=== PATIENT | male | born 1970 | race Caucasian/White ===

== ENCOUNTER 2018-10-24 18:06 | Emergency (ER) | payer OTHER ==
[~2018-10-24] VITALS: Ht 177.8 cm; Wt 72.1 kg
[~2018-10-24 18:06] MED LIST: NOHOMEMEDICATIONS; PROTONIX40 M2 PO; XANAX 0.5 MG0.5 M1; ZPAK PO
[2018-10-24 18:30] LABS: ABSOLUTE BASOPHILS 0.1 thou/uL (0.0-0.2); ABSOLUTE EOSINOPHILS 0.3 thou/uL (0.0-0.7); ABSOLUTE LYMPHOCYTES 2.6 thou/uL (0.8-5.3); ABSOLUTE MONOCYTES 0.8 thou/uL (0.0-1.2); ABSOLUTE NEUTROPHILS 5.3 thou/uL (1.6-8.1); BASOPHILS 1.1 %; EOSINOPHILS 3.8 %; HEMATOCRIT 45.3 % (42.0-52.0); HEMOGLOBIN 15.3 gm/dL (14.0-18.0); LYMPHOCYTES 28.1 %; MCH 30.1 pg (26.0-34.0); MCHC 33.8 g/dL (28.0-37.0); MCV 89.2 fL (80.0-100.0); MONOCYTES 8.5 %; MPV 8.3 fl. (7.2-11.1); NUCLEATED RBCS 0 /100WBC; PLATELET COUNT* 238 thou/uL (150-400); POLYS 58.5 %; RBC 5.07 mil/uL (4.50-6.00); RDW-CV 13.5 % (10.5-14.5); WBC 9.1 thou/uL (4.0-11.0)
[2018-10-24 18:37] LABS: ANION GAP 10 mmol/L (7-16); BUN 23 mg/dL (7-18); CHLORIDE 103 mmol/L (98-107); CO2 27 mmol/L (21-32); CREATININE 1.5 mg/dL (0.6-1.3); GLUCOSE 104 mg/dL (70-99); POTASSIUM 3.9 mmol/L (3.5-5.1); SODIUM 140 mmol/L (136-145)
[2018-10-24 18:44] LABS: ALBUMIN 3.7 g/dL (3.4-5.0); ALKALINE PHOSPHATASE 52 U/L (46-116); SGOT 24 U/L (15-37); SGPT 25 U/L (30-65); TOTAL BILIRUBIN 0.6 mg/dL (<0.1-1.0); TOTAL PROTEIN 7.4 g/dL (6.4-8.2); TROPONIN-I LEVEL <0.06 ng/mL (<0.06)
[2018-10-24] MEDS ORDERED: AUGMENTIN 875-1 EACH PO (19:12)
[2018-10-24] MEDS ORDERED: ANTIVERT25 MG PO (19:12)
[2018-10-24 19:35] VITALS: BP 114/78
--- NOTE | 2018-10-25 11:35 | EKG ---
[place] [address] ELECTROCARDIOGRAM REPORT Name: AVEL FOOTE Room: [facility]#: [id number] Admission: 10/24/18 Attend Phys: Discharge: 10/24/18 Date of : 68 Report #: [id number] THIS REPORT FOR: //name// [facility] ED Test Date: 2018-10-24 Test Time: 18:11:41 Pat Name: AVEL FOOTE Department: Room: Gender: M Branch Manager Trainee: : 1970 Requested By: Shauna Rodriguez Order Number: [id number] MD: Garret Carroll Measurements Intervals [place] Rate: 90 P: 74 [place]: 126 QRS: 63 QRSD: 100 T: 44 QT: 330 QTc: 404 Interpretive Statements Sinus rhythm Probable left atrial enlargement ST elev, probable normal early repol pattern Compared to ECG 08/14/2009 23:50:48 ST (T wave) deviation now present Left ventricular hypertrophy no longer present Electronically Signed On 10-25-2018 11:35:04 CDT by Garret Carroll [email or web address] <ELECTRONICALLY SIGNED> By: Garret Carroll MD, FACC 10/25/18 1135 181 181 Garret Carroll MD, [facility] /EPI
== END 2018-10-24 19:51 | disposition home or self-care (01) ==
LOC: M.ERS 18:06
PROVIDERS: Nurse Practitioner Family
DX: R42 Dizziness and giddiness (principal); J32.9 Chronic sinusitis, unspecified

== ENCOUNTER 2019-07-31 16:14 | Emergency (ER) | payer OTHER ==
[~2019-07-31] VITALS: Ht 182.9 cm; Wt 75.8 kg
[~2019-07-31 16:14] MED LIST changes: +ANTIVERT25 MG PO; +AUGMENTIN 875-1 EACH PO
[2019-07-31 17:02] LABS: ABSOLUTE BASOPHILS 0.1 thou/uL (0.0-0.2); ABSOLUTE EOSINOPHILS 0.2 thou/uL (0.0-0.7); ABSOLUTE LYMPHOCYTES 2.7 thou/uL (0.8-5.3); ABSOLUTE MONOCYTES 0.7 thou/uL (0.0-1.2); ABSOLUTE NEUTROPHILS 7.1 thou/uL (1.6-8.1); BASOPHILS 0.8 %; EOSINOPHILS 1.8 %; HEMATOCRIT 37.6 % (42.0-52.0); LYMPHOCYTES 25.1 %; MCH 31.7 pg (26.0-34.0); MCHC 34.5 g/dL (28.0-37.0); MCV 91.9 fL (80.0-100.0); MONOCYTES 6.9 %; MPV 8.4 fl. (7.2-11.1); NUCLEATED RBCS 0 /100WBC; PLATELET COUNT* 210 thou/uL (150-400); POLYS 65.4 %; RBC 4.09 mil/uL (4.50-6.00); RDW-CV 13.7 % (10.5-14.5); WBC 10.8 thou/uL (4.0-11.0)
[2019-07-31 17:08] LABS: URINE BILIRUBIN NEGATIVE (Negative); URINE BLOOD NEGATIVE (Negative); URINE CLARITY CLEAR; URINE COLOR YELLOW; URINE GLUCOSE-RANDOM NEGATIVE (Negative); URINE KETONES NEGATIVE (Negative); URINE LEUKOCYTES-REFLEX NEGATIVE (Negative); URINE NITRITE-REFLEX NEGATIVE (Negative); URINE PROTEIN NEGATIVE (Negative); URINE SPECIFIC GRAVITY <= 1.005 (1.005-1.030); URINE UROBILINOGEN 0.2 E.U./dl (0.2-1.0)
[2019-07-31 17:09] LABS: CALCIUM 7.8 mg/dL (8.5-10.1); CREATININE 1.2 mg/dL (0.6-1.3); POTASSIUM 4.1 mmol/L (3.5-5.1)
[2019-07-31 17:15] LABS: INFLUENZA A ANTIGEN Negative (Negative); INFLUENZA B ANTIGEN Negative (Negative)
[2019-07-31 17:20] LABS: ALBUMIN 3.3 g/dL (3.4-5.0); TOTAL BILIRUBIN 0.5 mg/dL (<0.1-1.0); TOTAL PROTEIN 6.9 g/dL (6.4-8.2)
[2019-07-31 19:04] VITALS: BP 100/62
--- NOTE | 2019-08-01 16:32 | EKG ---
[place] [address] ELECTROCARDIOGRAM REPORT Name: AVEL FOOTE Room: [facility]#: [id number] Admission: 07/31/19 Attend Phys: Discharge: 07/31/19 Date of : 68 Date of Service: 07/31/19 1703 Report #: [id number] THIS REPORT FOR: //name// [facility] ED Test Date: 2019-07-31 Test Time: 17:03:15 Pat Name: AVEL FOOTE Department: Room: Gender: Broadcast News Producer: : 1970 Requested By: Shauna Rodriguez Order Number: [id number] MD: Gary Looney Measurements Intervals [place] Rate: 55 P: 78 [place]: 140 QRS: 66 QRSD: 105 T: 30 QT: 396 QTc: 379 Interpretive Statements Sinus rhythm Probable left ventricular hypertrophy Compared to ECG 10/24/2018 18:11:41 ST (T wave) deviation no longer present Electronically Signed On 08-01-2019 16:30:55 CDT by Gary Looney [email or web address] <ELECTRONICALLY SIGNED> By: Gary Looney MD, FAC 08/01/19 1630 1703 170 Gary Looney MD, [facility] /EPI
== END 2019-07-31 19:05 | disposition home or self-care (01) ==
LOC: M.ERS 16:14
PROVIDERS: Nurse Practitioner Family
DX: R53.83 Other fatigue (principal); R00.2 Palpitations; Z88.8 Allergy status to other drugs, medicaments and biological substances